=== PATIENT | female | born 1980 | race Two or more races ===

== ENCOUNTER 2024-01-19 14:41 | Emergency (ER) | payer SELFPAY ==
[~2024-01-19] VITALS: Ht 162.6 cm; Wt 93.0 kg
[2024-01-19] MEDS: TRAMADOL HCL 50 MG TAB PO ONE (16:23)
[2024-01-19 17:46] VITALS: PULSE 78; RESP 18; TEMP 97.3
[2024-01-19] MEDS ORDERED: ULTRAM 50MG50 MG PO (17:47)
[2024-01-19 18:05] VITALS: BP 124/77; PULSE 66; RESP 18; TEMP 97.2; O2SAT 99
== END 2024-01-19 18:06 | disposition home or self-care (01) ==
LOC: ER 16:17
DX: M25.561 Pain in right knee (principal); M25.461 Effusion, right knee
CPT/HCPCS: 99284